=== PATIENT | male | born 1970 | race Caucasian/White ===

== ENCOUNTER 2016-10-23 15:15 | Emergency (ER) | payer OTHER ==
[~2016-10-23] VITALS: Ht 172.7 cm; Wt 54.4 kg
[~2016-10-23 15:15] MED LIST: ACETAMINOPHEN325 M1 PO; AMBIEN 10 MG TA10 MG PO; ATIVAN1 MG PO; ATIVAN2 MG PO; AUGMENTIN400 MG/53 PO; BENZTROPINE ME0.5 MG PO; BISACODYL SUPP10 MG PO; BISACODYL SUPP10 MG RECTAL; CARBAMAZEPINE200 M2 PO; CARBAMAZEPINE200 M6 PO; DEPAKOTE 250MG250 M1 PO; DEPAKOTE SPRIN125 MG PO; DEPAKOTE125 MG PO; DEPAKOTE500 MG PO; DESITIN113 GM; DIASTAT ACUDIA1 EAC1 RC; ENSURE PLUS237 ML PO; FLEET ENEMA118 ML RECTAL; FORTICAL1 SPRAY; FOSAMAX 70 MG T70 M1 PO; ILOTYCIN1 GM; LEVETIRACETAM250 MG PO; LISINOPRIL2.5 MG PO; LOPERAMIDE 2 MG2 M1 PO; LORAZEPAM 22 MG/1 ML IM; LUNESTA2 MG PO; LYRICA 50 MG50 MG PO; LYRICA100 MG PO; MIRALAX17 GM PO; OMEPRAZOLE 20 M20 MG PO; ONFI10 MG PO; ONFI2.5 MG/1 M PO; OYSTER SHELL C1 EA14 PO; OYSTER SHELL C500 MG PO; POLYETHYLENE G255 GM; POLYETHYLENE G255 GM PO; PRENATAL PO; PRILOSEC20 MG PO; RESTORIL15 M1 PO; ROBITUSSIN100 MG/53 PO; SEROQUEL 100 M100 M1 PO; SEROQUEL 25 MG25 M1 PO; SEROQUEL 50 MG50 MG PO; SIMETHICON CHEW80 M1 PO; TAMSULOSIN HCL0.4 MG PO; TRIAMCINOLONE A80 G2 TOP; TRIPLE ANTIBIO1 EACH TRANSDERM; TRIPLE ANTIBIOT28 G2 TP; TYLENOL325 MG PO; VALIUM10 MG RECTAL; VITAMIN D-32000 UNIT PO; [UNRECOGNIZED DRUG - OTHER] PO
[2016-10-23 16:28] LABS: ABSOLUTE NEUTROPHILS 4.9 thou/uL (1.4-8.2); BASOPHILS 0.3 % (0.0-2.0); EOSINOPHILS 2.1 % (0.0-3.0); HEMOGLOBIN 14.7 gm/dL (14.0-18.0); LYMPHOCYTES 26.2 % (24.0-44.0); MCH 29.5 pg (26.0-34.0); MCHC 34.1 % (28.0-37.0); MCV 86.4 fL (80.0-100.0); MONOCYTES 9.2 % (1.0-8.0); PLATELET COUNT 160 thou/uL (150-400); POLYS 62.2 % (36.0-66.0); RBC 4.97 mil/uL (4.50-6.00); RDW 12.8 % (10.5-14.5); WBC 7.8 thou/uL (4.0-11.0)
[2016-10-23 16:39] LABS: MANUAL DIFF NO
[2016-10-23 16:44] LABS: CALCIUM 8.7 mg/dL (8.5-10.1); CREATININE 0.8 mg/dL (0.6-1.3); POTASSIUM 4.2 mmol/L (3.5-5.1)
[2016-10-23] MEDS ORDERED: ANTIVERT25 MG PO (18:03)
[2016-10-23] MEDS ORDERED: IBUPROFEN 400400 M2 PO (20:05)
[2016-11-25] MEDS ORDERED: LEVAQUIN 500 M500 M2 PO (12:38)
== END 2016-10-23 21:02 | disposition home or self-care (01) ==
LOC: ER 15:15
PROVIDERS: Nurse Practitioner
DX: S05.12XA Contusion of eyeball and orbital tissues, left eye, initial encounter (principal); S09.8XXA Other specified injuries of head, initial encounter; G40.909 Epilepsy, unspecified, not intractable, without status epilepticus; G80.8 Other cerebral palsy; K21.9 Gastro-esophageal reflux disease without esophagitis; M41.80 Other forms of scoliosis, site unspecified; M19.90 Unspecified osteoarthritis, unspecified site; W05.0XXA Fall from non-moving wheelchair, initial encounter; Y93.89 Activity, other specified; Y92.89 Other specified places as the place of occurrence of the external cause; Y99.8 Other external cause status

== ENCOUNTER 2016-10-26 06:32 | Emergency (ER) | payer OTHER ==
[~2016-10-26] VITALS: Ht 180.3 cm; Wt 70.8 kg
[~2016-10-26 06:32] MED LIST changes: +ANTIVERT25 MG PO; +IBUPROFEN 400400 M2 PO
[2016-10-26] MEDS ORDERED: DEPAKOTE ER500 MG (06:52)
[2016-11-25] MEDS ORDERED: LEVAQUIN 500 M500 M2 PO (12:38)
== END 2016-10-26 07:08 | disposition home or self-care (01) ==
LOC: ER 06:32
DX: S01.01XA Laceration without foreign body of scalp, initial encounter (principal); G40.909 Epilepsy, unspecified, not intractable, without status epilepticus; G80.8 Other cerebral palsy; K21.9 Gastro-esophageal reflux disease without esophagitis; M41.80 Other forms of scoliosis, site unspecified; M81.8 Other osteoporosis without current pathological fracture; W19.XXXA Unspecified fall, initial encounter; Y93.89 Activity, other specified; Y92.89 Other specified places as the place of occurrence of the external cause; Y99.8 Other external cause status

== ENCOUNTER 2016-11-03 12:30 | Emergency (ER) | payer OTHER ==
[~2016-11-03] VITALS: Ht 177.8 cm; Wt 58.1 kg
[~2016-11-03 12:30] MED LIST changes: +DEPAKOTE ER500 MG
[2016-11-25] MEDS ORDERED: LEVAQUIN 500 M500 M2 PO (12:38)
== END 2016-11-03 12:57 ==
LOC: ER 12:30
DX: Z48.02 Encounter for removal of sutures (principal)

== ENCOUNTER 2016-11-12 02:20 | Emergency (ER) | payer OTHER ==
[~2016-11-12] VITALS: Ht 165.1 cm; Wt 75.8 kg
--- NOTE | ~2016-11-12 | EKG ---
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
[2016-11-12 04:43] LABS: CALCIUM 9.7 mg/dL (8.5-10.1); CREATININE 0.8 mg/dL (0.6-1.3)
[2016-11-12 04:50] LABS: ALBUMIN 3.6 g/dL (3.4-5.0); MAGNESIUM 1.9 mg/dL (1.8-2.4); TOTAL BILIRUBIN 0.4 mg/dL (<0.1-1.0); TOTAL PROTEIN 7.2 g/dL (6.4-8.2)
[2016-11-12] MEDS ORDERED: NIZORAL120 ML (05:09)
[2016-11-12] MEDS ORDERED: [UNRECOGNIZED DRUG - OTHER] ×2 (05:12→05:13)
[2016-11-12] MEDS ORDERED: VITAMIN D3 (05:14)
[2016-11-12] MEDS ORDERED: BISCOLAX10 MG RECTAL (05:14)
[2016-11-12] MEDS ORDERED: FLEET ENEMA118 ML (05:15)
[2016-11-12] MEDS ORDERED: TYLENOL325 MG PO (05:16)
[2016-11-12] MEDS ORDERED: DESITIN113 GM (05:17)
[2016-11-12] MEDS ORDERED: DIAZEPAM RECTAL (05:18)
[2016-11-12] MEDS ORDERED: LOPERAMIDE 2 MG2 M1 PO (05:20)
[2016-11-12] MEDS ORDERED: WAL-TUSSIN100 MG/5 M (05:20)
[2016-11-12 05:21] LABS: URINE BILIRUBIN NEGATIVE (Negative); URINE BLOOD NEGATIVE (Negative); URINE COLOR YELLOW; URINE GLUCOSE-RANDOM* NEGATIVE (Negative); URINE KETONES NEGATIVE (Negative); URINE LEUKOCYTES-REFLEX NEGATIVE (Negative); URINE PROTEIN (DIPSTICK) NEGATIVE (Negative); URINE UROBILINOGEN 0.2 E.U./dl (0.2-1.0)
[2016-11-12 05:36] LABS: POTASSIUM 4.1 mmol/L (3.5-5.1)
[2016-11-25] MEDS ORDERED: LEVAQUIN 500 M500 M2 PO (12:38)
== END 2016-11-12 06:22 ==
LOC: ER 02:20
PROVIDERS: Emergency Medicine
DX: G40.909 Epilepsy, unspecified, not intractable, without status epilepticus (principal); K21.9 Gastro-esophageal reflux disease without esophagitis; G80.9 Cerebral palsy, unspecified

== ENCOUNTER 2017-01-29 13:34 | Inpatient (IN) | payer OTHER ==
[~2017-01-29] VITALS: Ht 160 cm; Wt 64.0 kg
--- NOTE | ~2017-01-29 | D ---
[facility] [place] [address] DISCHARGE SUMMARY Name: BRAYAN MCLEOD Room #: 429-P ADM IN M.R.#: [id number] Admission: 01/29/17 Attend Phys: Amol Ulloa MD Discharge: Date of : 74 Report #: [id number] THIS REPORT FOR: //name// CC: Linette Ulloa DATE OF SERVICE: 02/02/2017 HISTORY OF PRESENT ILLNESS: The patient is a 46-year-old man with severe mental retardation and seizure disorder, who was brought to the Emergency Room from longterm. The patient was reportedly had seizure, as well as fever and cough. Please refer to the admission H and P for details. HOSPITALIZATION COURSE: The patient was hospitalized at [facility]. Chest x-ray showed perihilar infiltrates. The patient was started on broad spectrum antibiotics. Since aspiration was also suspected, he was treated with Zosyn as well. Levaquin was continued. The patient feels . Repeat chest x-ray a few days later showed clearing infiltrates. The patient is currently much more alert and stable. Neurologist was consulted for seizure management. Home medications were resumed. Valproic acid level was low, so neurologist recommended increasing valproic acid to 1500 mg p.o. b.i.d. The patient has been seizure free since he was hospitalized here. Currently, the patient is at his baseline. He is afebrile and he is hemodynamically stable. His medical condition is acceptable for him to be transported back to longterm. DISCHARGE DIAGNOSES: 1. Pneumonia, clinically much better. Outpatient antibiotics will be continued for 7 more days. The patient will be continued on Levaquin, and will be treated with Augmentin as well to cover suspected aspiration. 2. Seizure disorder, stable on current regimen, no seizure observed in the hospital stay. The patient is on carbamazepine and valproic acid. 3. Severe mental retardation. 4. Cerebral palsy. 5. Scoliosis. 6. Conduction hearing loss. 7. Osteoporosis. 8. Gastroesophageal reflux disease. DISCHARGE MEDICATIONS: Please refer to the medication reconciliation and the patient's EMR. As noted, the patient will be continued on his outpatient regimen unchanged, valproic acid was increased to 1500 mg b.i.d. by neurologist, [address] [address] DISCHARGE SUMMARY Name: BRAYAN MCLEOD Room #: 429-P [facility] IN M.R.#: [id number] Admission: 01/29/17 Attend Phys: Amol Ulloa MD Discharge: Date of : 74 Report #: [id number] and he will take antibiotics for 7 more days as detailed above. DISPOSITION: The patient is discharged back to longterm. FOLLOWUP PLAN: Follow up with the primary care physician in 1-2 weeks. I spent about 30 minutes to coordinate the patient's discharge from the hospital. By: 1504 1519 mAol Ulloa MD /jason
--- NOTE | ~2017-01-29 | EEG ---
[facility] [place] [address] ELECTROENCEPHALOGRAM Name: BRAYAN MCLEOD Room #: 429-P ADM IN M.R.#: [id number] Admission: 01/29/17 Attend Phys: Nadeen Ibrahim Discharge: Date of : 74 Report #: [id number] THIS REPORT FOR: //name// CC: Linette Ulloa DATE OF SERVICE: 02/01/2017 This patient is being evaluated for the possibility of seizure. EEG is being done to further evaluate that. The patient's EEG was done by placing the electrodes by standard 10-20 system of electrode placement. Both referential and sequential montages were used for recording. Background activity in this patient's EEG is about 6 Hz and 15 microvolt. This becomes even slow intermittently and the patient may be asleep during that time. Photic stimulation is unremarkable. No active epileptiform activity was noticed during this record. IMPRESSION: This is an abnormal EEG because it is disorganized and poorly formed. That is a nonspecific abnormality, which can occur with encephalopathy, effect of psychotropic medication, dementia, etc. Clinical correlation is recommended. Thank you very much for this referral. By: 1719 1820 Freddy Mcintyre MD /nt
--- NOTE | ~2017-01-29 | EKG ---
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 : 1970 Requested By: Aspen Calle Order Number: [id number] MD: Ishmael Angelo Measurements Intervals [place] Rate: 100 P: 58 [place]: 136 QRS: 33 QRSD: 74 T: 32 QT: 304 QTc: 392 Interpretive Statements Sinus tachycardia Low voltage, precordial leads Borderline T abnormalities, anterior leads Compared to ECG 11/12/2016 04:10:59 Low QRS voltage now present Electronically Signed On 01-30-2017 11:07:20 CDT by Ishmael Angelo [email or web address] <ELECTRONICALLY SIGNED> By: Ishmael Angelo MD 01/30/17 1107 1442 144 Ishmael Angelo MD /JUAN
[2017-01-29 13:34] VITALS: BP 89/54
[~2017-01-29 13:34] MED LIST changes: +BISCOLAX10 MG RECTAL; -DEPAKOTE ER500 MG; +DEPAKOTE ER500 MG PO; +DIAZEPAM RECTAL; +FLEET ENEMA118 ML; +LEVAQUIN 500 M500 M2 PO; +NIZORAL120 ML; +VITAMIN D3; +WAL-TUSSIN100 MG/5 M PO; +[UNRECOGNIZED DRUG - OTHER]
[2017-01-29] MEDS ORDERED: SEROQUEL 50 MG50 MG PO (13:58)
[2017-01-29] MEDS ORDERED: PREPLUS CA-FE1 EACH PO (14:00)
[2017-01-29] MEDS ORDERED: PRILOSEC 20 MG20 MG PO (14:02)
[2017-01-29] MEDS ORDERED: PHENADOZ25 MG RC (14:07)
[2017-01-29] MEDS ORDERED: DESITIN113 GM TOP (14:09)
[2017-01-29 14:10] LABS: HEMATOCRIT 42.6 % (42.0-52.0); HEMOGLOBIN 14.4 gm/dL (14.0-18.0); MCH 29.9 pg (26.0-34.0); MCHC 33.9 g/dL (28.0-37.0); MCV 88.2 fL (80.0-100.0); PLATELET COUNT 111 thou/uL (150-400); RBC 4.83 mil/uL (4.50-6.00); WBC 5.1 thou/uL (4.0-11.0)
[2017-01-29] MEDS ORDERED: TRIPLE ANTIBIOT28 GM TP (14:10)
[2017-01-29] MEDS ORDERED: NIZORAL120 ML TP (14:11)
[2017-01-29] MEDS ORDERED: FLEET ENEMA118 ML RC (14:12)
[2017-01-29 14:13] LABS: MANUAL DIFF YES
[2017-01-29 14:15] LABS: CALCIUM 8.7 mg/dL (8.5-10.1); CREATININE 0.7 mg/dL (0.7-1.3)
[2017-01-29 14:29] LABS: TOTAL CELL COUNT 100
[2017-01-29 16:19] LABS: ABG SAMPLE TYPE ARTERIAL; BE(vivo) 1.1 mmol/L (-2 to +3); HCO3 24.9 mmol/L (22.0-26.0); LACTATE 0.99 mmol/L (0.5-2.0); O2(CT) 18.1 mL/dL (15.0-23.0); O2Hb 90.6 % (92.0-98.0); PO2 62.9 mmHg (80.0-100.0); pH 7.445 (7.360-7.450); sO2 93.1 % (92.0-98.0)
[2017-01-29 16:21] LABS: STICK SITE R.RADIAL
[2017-01-29 16:37] LABS: URINE BILIRUBIN NEGATIVE (Negative); URINE BLOOD NEGATIVE (Negative); URINE COLOR YELLOW; URINE GLUCOSE-RANDOM* NEGATIVE (Negative); URINE KETONES TRACE (Negative); URINE LEUKOCYTES-REFLEX NEGATIVE (Negative); URINE PROTEIN (DIPSTICK) NEGATIVE (Negative)
[2017-01-29 20:52] VITALS: BP 120/64
[2017-01-29 21:25] VITALS: BP 85/44
[2017-01-30 00:30] VITALS: BP 97/62
[2017-01-30 04:45] VITALS: BP 74/42
[2017-01-30 05:29] LABS: HEMATOCRIT 35.5 % (42.0-52.0); MCH 30.1 pg (26.0-34.0); MCHC 34.6 g/dL (28.0-37.0); MCV 87.1 fL (80.0-100.0); PLATELET COUNT 99 thou/uL (150-400); RBC 4.07 mil/uL (4.50-6.00); WBC 6.6 thou/uL (4.0-11.0)
[2017-01-30 05:30] LABS: HEMOGLOBIN 12.3 gm/dL (14.0-18.0)
[2017-01-30 05:31] LABS: MANUAL DIFF YES
[2017-01-30 05:50] LABS: ALBUMIN 2.4 g/dL (3.4-5.0); CALCIUM 7.7 mg/dL (8.5-10.1); CREATININE 0.6 mg/dL (0.7-1.3); MAGNESIUM 1.7 mg/dL (1.8-2.4); POTASSIUM 3.9 mmol/L (3.5-5.1); TOTAL BILIRUBIN 0.4 mg/dL (<0.1-1.0); TOTAL PROTEIN 5.3 g/dL (6.4-8.2)
[2017-01-30 05:59] LABS: ABSOLUTE NEUTROPHILS 4.2 thou/uL (1.4-8.2); PLATELET ESTIMATE SLIGHTLY DECREASED; TOTAL CELL COUNT 100
[2017-01-30 07:28] VITALS: BP 74/73
[2017-01-30 12:03] VITALS: BP 85/50
[2017-01-30 16:27] VITALS: BP 122/70
[2017-01-30 20:05] VITALS: BP 106/65
[2017-01-31 04:10] VITALS: BP 97/61
[2017-01-31 07:57] VITALS: BP 132/70
[2017-01-31 15:19] LABS: CALCIUM 8.5 mg/dL (8.5-10.1); CREATININE 0.7 mg/dL (0.7-1.3); POTASSIUM 4.2 mmol/L (3.5-5.1)
[2017-01-31 15:30] VITALS: BP 106/63
[2017-01-31 20:45] VITALS: BP 115/73
[2017-01-31] MEDS ORDERED: DEPAKOTE500 MG PO (21:55)
[2017-02-01 05:31] LABS: ABSOLUTE NEUTROPHILS 1.7 thou/uL (1.4-8.2); BASOPHILS 0.5 % (0.0-2.0); EOSINOPHILS 4.3 % (0.0-3.0); HEMATOCRIT 39.2 % (42.0-52.0); HEMOGLOBIN 13.3 gm/dL (14.0-18.0); LYMPHOCYTES 54.1 % (24.0-44.0); MCH 29.9 pg (26.0-34.0); MCV 87.9 fL (80.0-100.0); MONOCYTES 10.6 % (1.0-8.0); PLATELET COUNT 132 thou/uL (150-400); POLYS 30.5 % (36.0-66.0); RBC 4.46 mil/uL (4.50-6.00); RDW 13.5 % (10.5-14.5); WBC 5.6 thou/uL (4.0-11.0)
[2017-02-01 05:39] LABS: MANUAL DIFF NO
[2017-02-01 05:40] LABS: CALCIUM 8.7 mg/dL (8.5-10.1); CREATININE 0.7 mg/dL (0.7-1.3)
[2017-02-01 05:45] LABS: POTASSIUM 4.6 mmol/L (3.5-5.1)
[2017-02-01 07:59] VITALS: BP 78/49
[2017-02-01 12:51] VITALS: BP 94/54
[2017-02-01 16:37] VITALS: BP 89/54
[2017-02-01 19:42] VITALS: BP 123/64
[2017-02-02 05:33] LABS: HEMATOCRIT 38.3 % (42.0-52.0); HEMOGLOBIN 12.9 gm/dL (14.0-18.0); MCH 29.6 pg (26.0-34.0); MCHC 33.7 g/dL (28.0-37.0); MCV 87.9 fL (80.0-100.0); PLATELET COUNT 171 thou/uL (150-400); RBC 4.36 mil/uL (4.50-6.00); RDW 13.5 % (10.5-14.5); WBC 5.1 thou/uL (4.0-11.0)
[2017-02-02 05:50] LABS: CALCIUM 8.5 mg/dL (8.5-10.1); CREATININE 0.7 mg/dL (0.7-1.3); POTASSIUM 3.7 mmol/L (3.5-5.1)
[2017-02-02 05:51] LABS: MANUAL DIFF YES
[2017-02-02 08:03] LABS: ABSOLUTE NEUTROPHILS 1.1 thou/uL (1.4-8.2); ATYPICAL LYMPHS 3 %; TOTAL CELL COUNT 100
[2017-02-02 08:25] VITALS: BP 86/55
[2017-02-02] MEDS ORDERED: LISINOPRIL2.5 MG PO (15:09)
[2017-02-02] MEDS ORDERED: LEVAQUIN 750 M750 MG PO (15:09)
[2017-02-02] MEDS ORDERED: AUGMENTIN 875875 MG PO (15:09)
[2017-02-02] MEDS ORDERED: DEPAKOTE500 MG PO (15:09)
[2017-02-02 15:20] VITALS: BP 86/55
[2017-02-02 15:43] VITALS: BP 86/55
[2017-02-02 15:45] VITALS: BP 86/55
== END 2017-02-02 16:47 | disposition home health service (06) | DRG 178 ==
LOC: ER 13:34 → 4E 20:23 → EROBS 20:23 → 4E 20:54
PROVIDERS: Emergency Medicine; Internal Medicine Endocrinology, Diabetes & Metabolism; Nurse Practitioner
DX: J69.0 Pneumonitis due to inhalation of food and vomit (principal); G40.919 Epilepsy, unspecified, intractable, without status epilepticus; F72 Severe intellectual disabilities; G80.9 Cerebral palsy, unspecified; M41.9 Scoliosis, unspecified; H90.2 Conductive hearing loss, unspecified; R07.9 Chest pain, unspecified; K21.9 Gastro-esophageal reflux disease without esophagitis; M81.0 Age-related osteoporosis without current pathological fracture; Z79.899 Other long term (current) drug therapy
CPT/HCPCS: 10084

== ENCOUNTER 2017-02-26 11:22 | Inpatient (IN) | payer OTHER ==
[~2017-02-26] VITALS: Ht 160 cm; Wt 55.8 kg
[~2017-02-26 11:22] MED LIST changes: +AUGMENTIN 875875 MG PO; +DESITIN113 GM TOP; +FLEET ENEMA118 ML RC; +LEVAQUIN 750 M750 MG PO; +NIZORAL120 ML TP; +PHENADOZ25 MG RC; +PREPLUS CA-FE1 EACH PO; +PRILOSEC 20 MG20 MG PO; +TRIPLE ANTIBIOT28 GM TP
[2017-02-26 11:29] VITALS: BP 106/74
[2017-02-26] MEDS ORDERED: VITAMIN D31000 UNI2 PO (12:27)
[2017-02-26 12:37] LABS: HEMATOCRIT 42.1 % (42.0-52.0); HEMOGLOBIN 14.6 gm/dL (14.0-18.0); MCH 30.8 pg (26.0-34.0); MCHC 34.7 g/dL (28.0-37.0); MCV 88.8 fL (80.0-100.0); PLATELET COUNT 118 thou/uL (150-400); RBC 4.74 mil/uL (4.50-6.00); RDW 13.7 % (10.5-14.5); WBC 8.7 thou/uL (4.0-11.0)
[2017-02-26 12:38] LABS: MANUAL DIFF YES
[2017-02-26 12:51] LABS: CREATININE 0.8 mg/dL (0.7-1.3); POTASSIUM 4.6 mmol/L (3.5-5.1)
[2017-02-26 12:55] LABS: DIRECT BILIRUBIN 0.1 mg/dL (<0.1-0.3); TOTAL BILIRUBIN 0.5 mg/dL (<0.1-1.0); TOTAL PROTEIN 6.9 g/dL (6.4-8.2)
[2017-02-26] MEDS ORDERED: MIACALCIN200 IU/ML INH (13:13)
[2017-02-26] MEDS ORDERED: LAMICTAL (BLUE)25 MG PO (13:18)
[2017-02-26 13:28] LABS: ABSOLUTE NEUTROPHILS 5.8 thou/uL (1.4-8.2); ANISOCYTOSIS SLIGHT; ATYPICAL LYMPHS 3 %; TOTAL CELL COUNT 100
[2017-02-26 14:21] LABS: URINE BILIRUBIN NEGATIVE (Negative); URINE BLOOD NEGATIVE (Negative); URINE COLOR ORANGE; URINE GLUCOSE-RANDOM* NEGATIVE (Negative); URINE KETONES 1+ (Negative); URINE LEUKOCYTES-REFLEX TRACE (Negative); URINE PROTEIN (DIPSTICK) TRACE (Negative); URINE SPECIFIC GRAVITY 1.025 (1.003-1.035)
[2017-02-26 16:04] VITALS: BP 99/57
[2017-02-26 16:27] VITALS: BP 95/64
[2017-02-26 20:15] VITALS: BP 109/79
[2017-02-27 04:12] LABS: HEMATOCRIT 39.3 % (42.0-52.0); HEMOGLOBIN 13.3 gm/dL (14.0-18.0); MCH 30.8 pg (26.0-34.0); MCHC 33.8 g/dL (28.0-37.0); RBC 4.32 mil/uL (4.50-6.00); RDW 13.8 % (10.5-14.5); WBC 5.8 thou/uL (4.0-11.0)
[2017-02-27 04:30] LABS: CALCIUM 8.3 mg/dL (8.5-10.1); CREATININE 0.6 mg/dL (0.7-1.3); POTASSIUM 4.5 mmol/L (3.5-5.1)
[2017-02-27 05:30] VITALS: BP 126/74
[2017-02-27 07:34] VITALS: BP 125/83
[2017-02-27 15:43] VITALS: BP 101/68
[2017-02-27 20:00] VITALS: BP 106/66
[2017-02-28 04:00] VITALS: BP 114/72
[2017-02-28 07:33] VITALS: BP 106/67
[2017-02-28] MEDS ORDERED: LEVAQUIN 750 M750 MG PO (10:41)
== END 2017-02-28 15:08 | disposition home or self-care (01) | DRG 689 ==
LOC: ER 11:22 → 4E 14:37 → ER 16:05 → 4E 16:05
PROVIDERS: Emergency Medicine; Hospitalist
DX: N39.0 Urinary tract infection, site not specified (principal); G92 Toxic encephalopathy; F73 Profound intellectual disabilities; G80.9 Cerebral palsy, unspecified; M41.9 Scoliosis, unspecified; G40.909 Epilepsy, unspecified, not intractable, without status epilepticus; M85.80 Other specified disorders of bone density and structure, unspecified site; K21.9 Gastro-esophageal reflux disease without esophagitis; G47.00 Insomnia, unspecified; M81.0 Age-related osteoporosis without current pathological fracture; I10 Essential (primary) hypertension; Z79.899 Other long term (current) drug therapy
CPT/HCPCS: 10783

== ENCOUNTER 2017-03-22 10:48 | Emergency (ER) | payer OTHER ==
[~2017-03-22] VITALS: Ht 160 cm; Wt 58.1 kg
[~2017-03-22 10:48] MED LIST changes: +LAMICTAL (BLUE)25 MG PO; +MIACALCIN200 IU/ML INH; +VITAMIN D31000 UNI2 PO
== END 2017-03-22 15:27 | disposition home or self-care (01) ==
LOC: ER 10:48
DX: Z71.1 Person with feared health complaint in whom no diagnosis is made (principal); F73 Profound intellectual disabilities; G80.9 Cerebral palsy, unspecified; K21.9 Gastro-esophageal reflux disease without esophagitis

== ENCOUNTER → 2017-12-07 | Outpatient (CLI) | payer OTHER | LOC: NUC 10-18 14:04 | DX: M85.89 Other specified disorders of bone density and structure, multiple sites (principal); Z87.39 Personal history of other diseases of the musculoskeletal system and connective tissue ==

== ENCOUNTER 2018-06-05 14:50 | Emergency (ER) | payer OTHER ==
[~2018-06-05] VITALS: Ht 160 cm; Wt 63.5 kg
[2018-06-05] MEDS ORDERED: MORPHINE SULFAT15 M3 PO (15:30)
== END 2018-06-05 16:00 | disposition home or self-care (01) ==
LOC: ER 14:50
DX: S42.021A Displaced fracture of shaft of right clavicle, initial encounter for closed fracture (principal); K21.9 Gastro-esophageal reflux disease without esophagitis; M41.9 Scoliosis, unspecified; M85.80 Other specified disorders of bone density and structure, unspecified site; M81.0 Age-related osteoporosis without current pathological fracture; G80.9 Cerebral palsy, unspecified; W05.0XXA Fall from non-moving wheelchair, initial encounter; Y93.89 Activity, other specified; Y92.129 Unspecified place in nursing home as the place of occurrence of the external cause; Y99.8 Other external cause status

== ENCOUNTER 2018-12-27 19:25 | Emergency (ER) | payer OTHER ==
[~2018-12-27] VITALS: Ht 160 cm; Wt 56.7 kg
[~2018-12-27 19:25] MED LIST changes: +MORPHINE SULFAT15 M3 PO
[2018-12-27 19:27] VITALS: BP 112/71
[2018-12-27] MEDS ORDERED: ZANTAC 150MG T150 MG PO (19:37)
[2018-12-27] MEDS ORDERED: DESITIN57 GM TOP (19:38)
== END 2018-12-27 20:35 | disposition home or self-care (01) ==
LOC: ER 19:25
DX: S01.01XA Laceration without foreign body of scalp, initial encounter (principal); M41.9 Scoliosis, unspecified; G47.00 Insomnia, unspecified; M81.0 Age-related osteoporosis without current pathological fracture; W05.0XXA Fall from non-moving wheelchair, initial encounter; Y92.89 Other specified places as the place of occurrence of the external cause; Y93.89 Activity, other specified; Y99.8 Other external cause status

== ENCOUNTER 2019-11-17 15:33 | Emergency (ER) | payer OTHER ==
[~2019-11-17] VITALS: Ht 160 cm; Wt 60.9 kg
[~2019-11-17 15:33] MED LIST changes: +DESITIN57 GM TOP; +ZANTAC 150MG T150 MG PO
[2019-11-17] MEDS ORDERED: BISACODYL10 MG RECTAL (16:06)
[2019-11-17] MEDS ORDERED: LACTULOSE10 GM/152 PO (16:07)
[2019-11-17] MEDS ORDERED: LAMOTRIGINE50 MG PO (16:08)
[2019-11-17] MEDS ORDERED: ZANTAC 150MG T150 M1 PO (16:09)
[2019-11-17] MEDS ORDERED: DEPAKOTE500 MG PO ×2 (16:11→16:12)
[2019-11-17 16:45] LABS: ABSOLUTE NEUTROPHILS 1.5 thou/uL (1.4-8.2); BASOPHILS 0.5 % (0.0-2.0); EOSINOPHILS 3.6 % (0.0-3.0); HEMATOCRIT 44.2 % (42.0-52.0); HEMOGLOBIN 14.7 gm/dL (14.0-18.0); LYMPHOCYTES 49.3 % (24.0-44.0); MCHC 33.3 g/dL (28.0-37.0); MCV 90.3 fL (80.0-100.0); PLATELET COUNT 150 thou/uL (150-400); POLYS 36.6 % (36.0-66.0); RDW 12.3 % (10.5-14.5); WBC 4.1 thou/uL (4.0-11.0)
[2019-11-17 16:54] LABS: CALCIUM 9.2 mg/dL (8.5-10.1); CREATININE 0.7 mg/dL (0.7-1.3); POTASSIUM 4.2 mmol/L (3.5-5.1)
[2019-11-17 17:01] LABS: ALBUMIN 3.7 g/dL (3.4-5.0); TOTAL BILIRUBIN 0.3 mg/dL (<0.1-1.0); TOTAL PROTEIN 7.2 g/dL (6.4-8.2)
[2019-11-17 17:13] VITALS: BP 107/77
== END 2019-11-17 17:15 | disposition home or self-care (01) ==
LOC: ER 15:33
PROVIDERS: Physician Assistant
DX: S00.81XA Abrasion of other part of head, initial encounter (principal); R56.9 Unspecified convulsions; K21.9 Gastro-esophageal reflux disease without esophagitis; M41.9 Scoliosis, unspecified; M81.0 Age-related osteoporosis without current pathological fracture; W18.39XA Other fall on same level, initial encounter; Y93.89 Activity, other specified; Y92.89 Other specified places as the place of occurrence of the external cause; Y99.8 Other external cause status

== ENCOUNTER 2019-11-22 10:40 | Emergency (ER) | payer OTHER ==
[~2019-11-22] VITALS: Ht 160 cm; Wt 61.2 kg
[~2019-11-22 10:40] MED LIST changes: +BISACODYL10 MG RECTAL; +LACTULOSE10 GM/152 PO; +LAMOTRIGINE50 MG PO; +ZANTAC 150MG T150 M1 PO
[2019-11-22 12:41] LABS: ABSOLUTE NEUTROPHILS 1.7 thou/uL (1.4-8.2); BASOPHILS 0.5 % (0.0-2.0); EOSINOPHILS 3.7 % (0.0-3.0); HEMATOCRIT 44.9 % (42.0-52.0); HEMOGLOBIN 14.9 gm/dL (14.0-18.0); LYMPHOCYTES 47.4 % (24.0-44.0); MCH 29.9 pg (26.0-34.0); MCHC 33.2 g/dL (28.0-37.0); MCV 89.9 fL (80.0-100.0); MONOCYTES 9.5 % (1.0-8.0); PLATELET COUNT 163 thou/uL (150-400); POLYS 38.9 % (36.0-66.0); RBC 4.99 mil/uL (4.50-6.00); RDW 12.4 % (10.5-14.5); WBC 4.3 thou/uL (4.0-11.0)
[2019-11-22 12:57] LABS: CALCIUM 9.5 mg/dL (8.5-10.1); CREATININE 0.7 mg/dL (0.7-1.3); POTASSIUM 4.5 mmol/L (3.5-5.1)
[2019-11-22 13:01] LABS: ALBUMIN 3.7 g/dL (3.4-5.0); PHOSPHORUS 3.4 mg/dL (2.5-4.9); TOTAL BILIRUBIN 0.2 mg/dL (<0.1-1.0); TOTAL PROTEIN 7.4 g/dL (6.4-8.2)
[2019-11-22 13:31] LABS: CHOLESTEROL 158 mg/dL (<200); HDL CHOLESTEROL 32 mg/dL (>40); LDL CHOLESTEROL 94 mg/dL (<100); TC:HDL 4.9 Ratio (Not establshd); TRIGLYCERIDE 160 mg/dL (<150); VLDL 32 mg/dL (<40)
[2019-11-22 16:29] VITALS: BP 121/70
== END 2019-11-22 16:30 | disposition home or self-care (01) ==
LOC: ER 10:40
PROVIDERS: Physician Assistant
DX: R56.9 Unspecified convulsions (principal); G47.00 Insomnia, unspecified; M81.0 Age-related osteoporosis without current pathological fracture; M85.80 Other specified disorders of bone density and structure, unspecified site; Z79.899 Other long term (current) drug therapy

== ENCOUNTER 2020-04-04 10:47 | Emergency (ER) | payer OTHER ==
[~2020-04-04] VITALS: Ht 160 cm; Wt 59.0 kg
--- NOTE | ~2020-04-04 | EMS ---
[facility] [address] [place] [address] EMS Patient Care Report Name: BRAYAN MCLEOD Room #: REG Ora#: [id number] Admission: 04/04/20 Attend Phys: Discharge: Date of : 74 Report #: [id number] THIS REPORT FOR: //name// Report Transmitted: 04/04/2020 11:46 EMS Care Summary [place], [place]/[facility] Incident [id number] @ 04/04/2020 10:20 Incident Location [address] [place] [address] Patient BALA MCLEOD Male, 50 Years 1970 Patient Address [address] [place] [address] Patient History Epilepsy,Cerebral Palsy,Intellectual Disabilities, Chief Complaint "HE HAD A SEIZURE" Disposition Transported No Lights/[place] Dispatch Reason Convulsions/Seizure Transported To [facility] Narrative DIAPATCHED FOR A SEIZURE. UPON ARRIVAL ON SCENE, I NOTICED THAT IT WAS A HOME FOR PEOPLE WITH PHYSICAL AND DEVELOPMENTAL DISABILITIES. STAFF INFORMED ME THAT ONE OF THE RESIDENTS HAD A SEIZURE. THEY HAD CALLED THEIR HAND ALTERATIONS TAILOR AFTER THE SEIZURE WAS OVER AND WERE INFORMED TO CALL 911 PER THEIR PROTOCOL. WE ARRIVED AT PT SIDE AND I FOUND HIM PLAYING WITH A BALL AND SMILING. PT LOOKED AT ME WHEN I SPOKE TO HIM, BUT IT WAS REPORTED THAT HE IS NON-VERBAL. PT DID NOT APPEAR TO BE INJURED AND WAS BEHAVING NORMALLY ACCORDING TO STAFF. PT WAS MOVED FROM HIS WHEELCHAIR TO GURNEY, SECURED AND MOVED TO AMBULANCE WITHOUT INCIDENT. [facility] [address] [place] [address] EMS Patient Care Report Name: BRAYAN MCLEOD Room #: REG Gregory.#: [id number] Admission: 04/04/20 Attend Phys: Discharge: Date of : 74 Report #: [id number] PT MONITORED THROUGHOUT TX WITHOUT CHANGE IN STATUS. Initial Vitals @10:29P: 80,R: 13,Pain: 0/10,GCS: 9, @10:32P: 82,R: 14,BP: 114/76,Pain: 0/10,GCS: 9,Glucose: 111,SpO2: 97,Revised Trauma: 11, @10:38P: 80,R: 14,BP: 112/72,Pain: 0/10,GCS: 9,SpO2: 96,Revised Trauma: 11, Assessments @10:42MENTAL:Person Oriented,SKIN:HEENT:Head/Face: No Abnormalities,Neck/Airway: No Abnormalities,LUNG SOUNDS:General: No Abnormalities,Left Upper: No Abnormalities,Right Upper: No Abnormalities,Left Lower: No Abnormalities,Right Lower: No Abnormalities,ABDOMEN:General: No Abnormalities,Left Upper: No Abnormalities,Right Upper: No Abnormalities,Left Lower: No Abnormalities,Right Lower: No Abnormalities,PELVIS//GI:No Abnormalities,EXTREMITIES:Left Leg: Other,Right Leg: Other,Capillary Refill: Left Upper: < 2 Sec,PULSE:Radial: 2+ Normal,NEURO:Seizures,@10:29MENTAL:Person Oriented,SKIN:HEENT:Head/Face: No Abnormalities,Neck/Airway: No Abnormalities,LUNG SOUNDS:General: No Abnormalities,Left Upper: No Abnormalities,Right Upper: No Abnormalities,Left Lower: No Abnormalities,Right Lower: No Abnormalities,ABDOMEN:General: No Abnormalities,Left Upper: No Abnormalities,Right Upper: No Abnormalities,Left Lower: No Abnormalities,Right Lower: No Abnormalities,PELVIS//GI:No Abnormalities,EXTREMITIES:Left Leg: Other,Right Leg: Other,Capillary Refill: Right Upper: < 2 Sec,Left Arm: No Abnormalities,Right Arm: No Abnormalities,PULSE:Radial: 2+ Normal,NEURO:Seizures, Impression Seizures Procedures @10:29ALS AssessmentResponse: UnchangedSucceeded@10:33StretcherResponse: Unchanged Timeline 10:18,Call Received 10:18,Dispatch Notified 10:20,Dispatched 10:22,En Route 10:27,On Scene 10:29,At Patient 10:29,ALS Assessment,Response: UnchangedSucceeded, 10:29,BP: / M,PULSE: 80,RR: 13 R,SPO2: Ox,ETCO2: ,BG: ,PAIN: 0,GCS: 9, 10:32,BP: 114/76 M,PULSE: 82,RR: 14 R,SPO2: 97 Ox,ETCO2: ,B,PAIN: 0,GCS: 9, 10:33,Stretcher,Response: Unchanged [facility] [address] [place] [address] EMS Patient Care Report Name: BRAYAN MCLEOD Room #: REG LAUREEN Payan#: [id number] Admission: 04/04/20 Attend Phys: Discharge: Date of : 74 Report #: [id number] 10:35,Depart Scene 10:38,BP: 112/72 M,PULSE: 80,RR: 14 R,SPO2: 96 Ox,ETCO2: ,BG: ,PAIN: 0,GCS: 9, 10:42,At Destination 11:02,Call Closed Disclaimer v1.1 Copyright 2020 [employer] This EMS Care Summary contains data elements from the applicable legal record (which may be displayed differently). It is designed to provide pertinent information for the following purposes: continuity of care, clinical quality, and state data reporting. The complete legal record is available to ED staff and administrators of the receiving hospital in [employer]'s Patient Tracker. All data is provided "as is."
[2020-04-04 12:54] VITALS: BP 108/59
== END 2020-04-04 13:00 | disposition home or self-care (01) ==
LOC: ER 10:47
DX: G40.909 Epilepsy, unspecified, not intractable, without status epilepticus (principal); K21.9 Gastro-esophageal reflux disease without esophagitis; G47.00 Insomnia, unspecified; M81.0 Age-related osteoporosis without current pathological fracture; Z79.899 Other long term (current) drug therapy

== ENCOUNTER 2020-08-01 10:48 | Emergency (ER) | payer OTHER ==
[~2020-08-01] VITALS: Ht 160 cm; Wt 60.3 kg
[2020-08-01 13:19] LABS: ABSOLUTE NEUTROPHILS 1.6 thou/uL (1.4-8.2); BASOPHILS 0.5 % (0.0-2.0); EOSINOPHILS 0.6 % (0.0-3.0); HEMATOCRIT 43.9 % (42.0-52.0); HEMOGLOBIN 14.9 gm/dL (14.0-18.0); LYMPHOCYTES 48.2 % (24.0-44.0); MCH 30.3 pg (26.0-34.0); MCHC 33.9 g/dL (28.0-37.0); MCV 89.5 fL (80.0-100.0); MONOCYTES 10.2 % (1.0-8.0); PLATELET COUNT 136 thou/uL (150-400); POLYS 40.5 % (36.0-66.0); RBC 4.91 mil/uL (4.50-6.00); RDW 12.2 % (10.5-14.5); WBC 3.9 thou/uL (4.0-11.0)
[2020-08-01 13:30] LABS: ANION GAP 10 mmol/L (7-16); BUN 26 mg/dL (7-18); CALCIUM 9.2 mg/dL (8.5-10.1); CHLORIDE 105 mmol/L (98-107); CO2 27 mmol/L (21-32); CREATININE 0.7 mg/dL (0.7-1.3); GLUCOSE 89 mg/dL (74-106); POTASSIUM 4.1 mmol/L (3.5-5.1); SODIUM 142 mmol/L (136-145)
[2020-08-01 13:40] LABS: ALBUMIN 3.8 g/dL (3.4-5.0); MAGNESIUM 2.2 mg/dL (1.8-2.4); SGOT 30 U/L (15-37); SGPT 42 U/L (30-65); TOTAL BILIRUBIN 0.3 mg/dL (0.2-1.0); TOTAL PROTEIN 7.7 g/dL (6.4-8.2); TROPONIN-I <0.06 ng/mL (<0.06)
--- NOTE | 2020-08-01 15:13 | EKG ---
[facility] [place] [address] ELECTROCARDIOGRAM REPORT Name: BRAYAN MCLEOD Room #: REG [facility].#: [id number] Admission: 08/01/20 Attend Phys: Discharge: Date of : 74 Report #: [id number] THIS REPORT FOR: cc: Linette Harris MD, Marie A. 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: : 1970 Requested By: Kingston Hansen Order Number: [id number] MD: Manolo Cuevas Measurements Intervals [place] Rate: 71 P: 74 NE: 139 QRS: 52 QRSD: 75 T: 41 QT: 357 QTc: 388 Interpretive Statements Sinus rhythm Probable left atrial enlargement ST elev, probable normal early repol pattern Compared to ECG 02/16/2017 17:13:11 ST (T wave) deviation now present T-wave abnormality no longer present Electronically Signed On 08-01-2020 15:13:40 CDT by Manolo Cuevas [email or web address] <ELECTRONICALLY SIGNED> By: Manolo Cuevas MD, FACC 08/01/20 1513 1509 1509 Manolo Cuevas MD, [facility] /EPI
[2020-08-01 15:29] LABS: URINE BILIRUBIN NEGATIVE (Negative); URINE BLOOD NEGATIVE (Negative); URINE COLOR YELLOW; URINE GLUCOSE-RANDOM* NEGATIVE (Negative); URINE KETONES 1+ (Negative); URINE LEUKOCYTES-REFLEX NEGATIVE (Negative); URINE PROTEIN (DIPSTICK) NEGATIVE (Negative)
[2020-08-01 15:33] LABS: URINE NITRITE-REFLEX POSITIVE (Negative)
[2020-08-01 15:34] LABS: URINE CLARITY HAZY
[2020-08-01 15:44] LABS: SQUAMOUS None Seen /LPF (0-3)
[2020-08-01 15:45] LABS: AMORPHOUS PHOSPHATES Moderate /LPF (None Seen); BACTERIA-REFLEX >30 Many /HPF (None Seen); CASTS None Seen /LPF (None Seen); URINE RBC None Seen /HPF (0-2); URINE WBC-REFLEX 0-5 Rare /HPF (0-5)
[2020-08-01] MEDS ORDERED: KEFLEX500 M1 PO (15:52)
[2020-08-01 20:41] VITALS: BP 122/82
== END 2020-08-01 20:42 | disposition home or self-care (01) ==
LOC: ER 10:48
PROVIDERS: Emergency Medicine
DX: N39.0 Urinary tract infection, site not specified (principal); R55 Syncope and collapse; G40.909 Epilepsy, unspecified, not intractable, without status epilepticus; K21.9 Gastro-esophageal reflux disease without esophagitis; M81.0 Age-related osteoporosis without current pathological fracture; Z79.899 Other long term (current) drug therapy

== ENCOUNTER 2021-01-31 10:51 | Emergency (ER) | payer OTHER ==
[~2021-01-31] VITALS: Ht 160 cm; Wt 59.0 kg
[~2021-01-31 10:51] MED LIST changes: +KEFLEX500 M1 PO
[2021-01-31 11:59] LABS: ABSOLUTE NEUTROPHILS 1.7 thou/uL (1.4-8.2); BASOPHILS 0.3 % (0.0-2.0); EOSINOPHILS 3.4 % (0.0-3.0); HEMATOCRIT 43.6 % (42.0-52.0); HEMOGLOBIN 14.9 gm/dL (14.0-18.0); LYMPHOCYTES 44.2 % (24.0-44.0); MCH 31.2 pg (26.0-34.0); MCHC 34.2 g/dL (28.0-37.0); MONOCYTES 11.8 % (1.0-8.0); PLATELET COUNT 136 thou/uL (150-400); POLYS 40.3 % (36.0-66.0); RBC 4.79 mil/uL (4.50-6.00); RDW 12.8 % (10.5-14.5); WBC 4.2 thou/uL (4.0-11.0)
[2021-01-31 12:09] LABS: CALCIUM 9.1 mg/dL (8.5-10.1); CREATININE 0.8 mg/dL (0.7-1.3); MAGNESIUM 1.9 mg/dL (1.8-2.4); POTASSIUM 4.4 mmol/L (3.5-5.1)
[2021-01-31 16:08] VITALS: BP 103/58
== END 2021-01-31 17:07 ==
LOC: ER 10:51
PROVIDERS: Emergency Medicine
DX: S09.90XA Unspecified injury of head, initial encounter (principal); G40.909 Epilepsy, unspecified, not intractable, without status epilepticus; K21.9 Gastro-esophageal reflux disease without esophagitis; Z79.899 Other long term (current) drug therapy; W01.198A Fall on same level from slipping, tripping and stumbling with subsequent striking against other object, initial encounter; Y93.9 Activity, unspecified; Y92.89 Other specified places as the place of occurrence of the external cause; Y99.9 Unspecified external cause status

== ENCOUNTER 2021-07-23 15:16 | Emergency (ER) | payer OTHER ==
[~2021-07-23] VITALS: Ht 264.2 cm; Wt 59.0 kg
--- NOTE | ~2021-07-23 | EMS ---
[place] [address] EMS Patient Care Report Name: BRAYAN MCLEOD Room #: DEP LAUREEN Payan#: [id number] Admission: 07/23/21 Attend Phys: Discharge: 07/23/21 Date of : 74 Report #: [id number] THIS REPORT FOR: //name// Report Transmitted: 07/24/2021 09:50 EMS Care Summary [place], [place]/[facility] Incident [id number] @ 07/23/2021 14:52 Incident Location [address] [place] [address] Patient BRAYAN MCLEOD Male, 51 Years 1970 Patient Address [address] [place] [address] Patient History Hypertension (HTN),Seizures,Cerebral Palsy, Patient Allergies No known allergies, Patient Medications Famotidine, Promethazine, Tamsulosin, Lamotrigine, Diazepam, Polyethlene Glycol, Loperamide, Divalproex Sodium, Benztropine, Chief Complaint ALTERED LOC Disposition Transported No Lights/[place] Dispatch Reason Convulsions/Seizure Transported To [facility] Narrative SCENE: ON ARRIVAL STAFF STATES PT HAD A WITNESSED 30 SECOND SEIZURE. PT HAS A KNOWN SEIZURE HISTORY. STAFF REPORTS PT IS TYPICALLY MAKING NOISES, AND ABLE TO WHEEL HIMSELF AROUND IN HIS WHEELCHAIR, BUT [place] [address] EMS Patient Care Report Name: BRAYAN MCLEOD Room #: DEP [facility]#: [id number] Admission: 07/23/21 Attend Phys: Discharge: 07/23/21 Date of : 74 Report #: [id number] SEIZURE. PT IS AWAKE AND ALERT, BUT NON VERBAL FOR EMS. PT IS ABLE TO STAND AND SIT ON EMS STRETCHER. AMBULANCE: VITALS MONITORED. NO CHANGES. Initial Vitals @15:02P: 100,R: 18,BP: 128/84,Pain: 0/10,GCS: 10,Glucose: 154,SpO2: 98,Revised Trauma: 11, @15:16P: 102,R: 14,BP: 130/74,GCS: 10,Revised Trauma: 11, Assessments @15:02MENTAL:Other,SKIN:No Abnormalities,HEENT:Head/Face: No Abnormalities,Eyes: No Abnormalities,Neck/Airway: No Abnormalities,LUNG SOUNDS:General: No Abnormalities,Left Upper: No Abnormalities,Right Upper: No Abnormalities,Left Lower: No Abnormalities,Right Lower: No Abnormalities,ABDOMEN:General: No Abnormalities,Left Upper: No Abnormalities,Right Upper: No Abnormalities,Left Lower: No Abnormalities,Right Lower: No Abnormalities,PELVIS//GI:No Abnormalities,EXTREMITIES:Left Arm: No Abnormalities,Right Arm: No Abnormalities,Left Leg: No Abnormalities,Right Leg: No Abnormalities,PULSE:NEURO:No Abnormalities,@15:14MENTAL:Other,SKIN:No Abnormalities,HEENT:Head/Face: No Abnormalities,Eyes: No Abnormalities,Neck/Airway: No Abnormalities,LUNG SOUNDS:General: No Abnormalities,Left Upper: No Abnormalities,Right Upper: No Abnormalities,Left Lower: No Abnormalities,Right Lower: No Abnormalities,ABDOMEN:General: No Abnormalities,Left Upper: No Abnormalities,Right Upper: No Abnormalities,Left Lower: No Abnormalities,Right Lower: No Abnormalities,PELVIS//GI:No Abnormalities,EXTREMITIES:Left Arm: No Abnormalities,Right Arm: No Abnormalities,Left Leg: No Abnormalities,Right Leg: No Abnormalities,PULSE:NEURO:No Abnormalities, Impression Altered Mental Status Procedures @15:01ALS AssessmentResponse: UnchangedSucceeded@15:05StretcherResponse: Unchanged Timeline 14:50,Call Received 14:50,Dispatch Notified 14:52,Dispatched 14:52,En Route 15:00,On Scene 15:01,At Patient 15:01,ALS Assessment,Response: UnchangedSucceeded, 15:02,BP: 128/84 M,PULSE: 100,RR: 18 R,SPO2: 98 Ox,ETCO2: ,B,PAIN: [address] [address] EMS Patient Care Report Name: BRAYAN MCLEOD Room #: [facility] LAUREEN Payan#: [id number] Admission: 07/23/21 Attend Phys: Discharge: 07/23/21 Date of : 74 Report #: [id number] 0,GCS: 10, 15:05,Stretcher,Response: Unchanged 15:06,Depart Scene 15:16,BP: 130/74 M,PULSE: 102,RR: 14 R,SPO2: Ox,ETCO2: ,BG: ,PAIN: ,GCS: 10, 15:18,At Destination 15:30,Call Closed Disclaimer v1.1 Copyright 2020 [employer] This EMS Care Summary contains data elements from the applicable legal record (which may be displayed differently). It is designed to provide pertinent information for the following purposes: continuity of care, clinical quality, and state data reporting. The complete legal record is available to ED staff and administrators of the receiving hospital in [employer]'s Patient Tracker. All data is provided "as is."
[2021-07-23 16:05] LABS: ABSOLUTE NEUTROPHILS 2.6 thou/uL (1.4-8.2); BASOPHILS 0.4 % (0.0-2.0); EOSINOPHILS 1.9 % (0.0-3.0); HEMOGLOBIN 15.3 gm/dL (14.0-18.0); LYMPHOCYTES 38.5 % (24.0-44.0); MCH 29.8 pg (26.0-34.0); MCHC 33.3 g/dL (28.0-37.0); MCV 89.5 fL (80.0-100.0); MONOCYTES 10.5 % (1.0-8.0); PLATELET COUNT 160 thou/uL (150-400); POLYS 48.7 % (36.0-66.0); RBC 5.14 mil/uL (4.50-6.00); RDW 12.5 % (10.5-14.5); WBC 5.4 thou/uL (4.0-11.0)
[2021-07-23 16:13] LABS: ANION GAP 6 mmol/L (7-16); BUN 17 mg/dL (7-18); CALCIUM 8.7 mg/dL (8.5-10.1); CHLORIDE 101 mmol/L (98-107); CO2 28 mmol/L (21-32); CREATININE 0.7 mg/dL (0.7-1.3); GLUCOSE 121 mg/dL (74-106); POTASSIUM 4.4 mmol/L (3.5-5.1); SODIUM 135 mmol/L (136-145)
[2021-07-23] MEDS ORDERED: DIAZEPAM 5 MG5 MG PO (16:16)
[2021-07-23 16:19] LABS: ALBUMIN 3.7 g/dL (3.4-5.0); DIRECT BILIRUBIN < 0.1 mg/dL (<0.1-0.2); SGOT 23 U/L (15-37); SGPT 34 U/L (30-65); TOTAL BILIRUBIN 0.3 mg/dL (0.2-1.0)
[2021-07-23] MEDS ORDERED: FAMOTIDINE40 MG PO (16:32)
[2021-07-23 20:45] VITALS: BP 124/79
--- NOTE | 2021-07-24 07:09 | EKG ---
[place] [address] 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 : 1970 Requested By: Dale Purcell Order Number: [id number] MD: Manolo Cuevas Measurements Intervals [place] Rate: 86 P: 40 DC: 137 QRS: 33 QRSD: 81 T: 38 QT: 342 QTc: 409 Interpretive Statements Sinus rhythm Left atrial enlargement Minimal ST elevation, inferior leads Compared to ECG 08/01/2020 15:09:14 No significant changes Electronically Signed On 07-24-2021 7:09:26 CDT by Manolo Cuevas [email or web address] <ELECTRONICALLY SIGNED> By: Manolo Cuevas MD, [facility] 07/24/21 0709 1654 1654 Manolo Cuevas MD, FACC /EPI
== END 2021-07-23 20:50 | disposition home or self-care (01) ==
LOC: ER 15:16
PROVIDERS: Student in an Organized Health Care Education/Training Program
DX: G40.909 Epilepsy, unspecified, not intractable, without status epilepticus (principal); K21.9 Gastro-esophageal reflux disease without esophagitis; M19.90 Unspecified osteoarthritis, unspecified site; Z79.899 Other long term (current) drug therapy; Z79.891 Long term (current) use of opiate analgesic; Z79.1 Long term (current) use of non-steroidal anti-inflammatories (NSAID)